=== PATIENT | female | born 1935 | race Caucasian/White ===

== ENCOUNTER 2016-04-07 12:22 | Observation (INO) | payer MEDICARE ==
[2016-04-07] MEDS ORDERED: SODIUM CHLORIDE 0.9% 3 ML FLUSH FLUSH PRN ×2 (13:07→17:01)
[2016-04-07] MEDS ORDERED: ONDANSETRON HCL 4 MG/2 ML VIAL IV ONE (13:07)
[2016-04-07] MEDS ORDERED: NS 1,000 ML IV ONE ×2 (13:07)
--- NOTE | 2016-04-07 13:20 | DIRPT ---
CLINICAL DATA: Nausea and vomiting. EXAM: PORTABLE CHEST 1 VIEW COMPARISON: August 05, 2015 FINDINGS: No pneumothorax. The cardiomediastinal silhouette and left-sided pacemaker are stable. No pulmonary nodules or masses. No acute abnormalities are seen. IMPRESSION: No active disease. Electronically Signed By: Semaj Lowery III, M.D On: 04/07/2016 13:18
--- NOTE | 2016-04-07 13:24 | EDPRACDOC ---
- General Information Information Source: Patient, Family () Mode Of Arrival: Car - History of Present Illness Onset: 4 days Exact Onset of Symptoms: Known Date Symptoms Started: 04/03/16 HPI: PT STATES STARTED WITH N/V/D 4 DAYS AGO HAD 2 DAYS OF N/V/D STOPPED ON WEDNESDAY AND HAS BEEN FEELING WEAK SINCE THEN. STATES SHE IS HAVING SHOB WITH ANY EXERTION AT ALL CAN BARELY STAND TO WALK BECAUSE SHE IS SO WEAK. NO N/V/D FOR 2 DAYS. Symptoms Started: Reports: Gradually (OVER THE LAST 4 DAYS) Symptoms Description: Constant Weakness: Bilateral: Generalized Symptoms: Reports: Weak Symptom Severity: Reports: Unable to performs ADL's Relevant History of: Reports: Anemia Associated signs and symptoms:: Reports: Nausea (2 DAYS AGO), Vomiting <Stacy Alvarado - Last Filed: 04/07/16 13:21> <Caryn Hays - Last Filed: 04/07/16 16:42> - General Information Chief Complaint: Generalized Weakness Stated Complaint: WEAK Time Seen by Provider: 04/07/16 13:06 Home Medications: Home Medications Ascorbate Calcium [Vitamin C] 500 mg PO DAILY 08/05/15 Azathioprine [Imuran] 50 mg PO [facility] 08/05/15 Benzonatate [Tessalon] 100 mg PO BID PRN 08/05/15 Calcium Carb & Cit/Vitamin D3 [Citracal + D ER Tablet] 1 tab PO QA 08/05/15 Cranberry Extract/Vit C [Azo Cranberry Softgel (250 mg/30 mg)] 1 cap PO BID Ferrous Sulfate [Iron] 325 mg PO MOWEFR 08/05/15 Latanoprost [Xalatan] 1 drop OU QHS 08/05/15 Sertraline HCl 25 mg PO QA 08/05/15 Vit A/Vit C/Vit E/Zinc/Copper [I-Caps Areds Softgel] 1 cap PO BID 08/05/15 Apixaban [Eliquis] 2.5 mg PO BID 04/07/16 Brinzolamide/Brimonidine Tart [Simbrinza 1%-0.2% Eye Drops] 1 drop OU BID Cholecalciferol (Vitamin D3) [D-2000] 2,000 unit PO QAM 04/07/16 Denosumab [Prolia] 60 mg SQ [id number] 04/07/16 Lactobacillus Combination No.4 [Probiotic] 1 each PO QAM 04/07/16 Levothyroxine Sodium [Synthroid] 175 mcg PO DAILY 04/07/16 Allergies/Adverse Reactions: Allergies Allergy/AdvReac Type Severity Reaction Status Date / Time Cephalosporins Allergy Unknown Verified 04/07/16 13:28 ciprofloxacin [From Cipro] Allergy See Verified 04/07/16 12:42 Comments ciprofloxacin HCl Allergy See Verified 04/07/16 12:42 [From Cipro] Comments erythromycin base Allergy Nausea only Verified 04/07/16 12:42 methotrexate Allergy See Verified 04/07/16 12:42 Comments nitrofurantoin Allergy Unknown Verified 04/07/16 13:28 [From Macrobid] sulfamethoxazole Allergy Rash-Genera Verified 04/07/16 12:42 [From Septra] lized trimethoprim [From Septra] Allergy Rash-Genera Verified 04/07/16 12:42 lized zolpidem tartrate Allergy See Verified 04/07/16 12:42 [From Ambien] Comments ED Past Medical History - History Reviewed Yes Nurses notes reviewed and agree except as marked Travel Outside of [place] in the Last 3 Months?: No - Patient Medical History Cardiac History: Reports: Atrial Fibrillation, Hypertension, Pacemaker Respiratory History: Reports: No Significant History GI/ History: Reports: No Significant History Surgical History: Reports: Cholecystectomy, Other (HIP, KNEE) - Social Medical History Smoking Status: Never smoker ETOH: None Substance Abuse: None Lives With: Spouse Lives In: Home <Stacy Alvarado - Last Filed: 04/07/16 13:21> EDM Review of Systems - Review of Systems ROS Negative Except as Marked: Yes All systems reviewed and were negative except as marked Constitutional: Fatigue, Weakness. negative: Chills, Fever, Loss of Appetite Eyes: No Symptoms Reported. negative: Redness, Blurred Vision, Double Vision, Discharge, Pain, Light Sensitive, Photophobia Ears: No Symptoms Reported. negative: Pain, Hearing Loss, Drainage, Ear Pulling Throat: No Symptoms Reported. negative: Pain, Swelling Nose: No Symptoms Reported. negative: Congestion, Bleeding, Discharge, Injection, Swelling, Deformity, Ecchymosis, Tender, Abrasion, Laceration Mouth: No Symptoms Reported. negative: Pain, Drooling Respiratory: Shortness of Breath. negative: Barky Cough, Brassy Cough, Cough, Hemoptysis, Wheezing Cardiovascular: No Symptoms Reported. negative: Chest Pain, Palpitations, Syncope, Edema, Orthopnea, PND, Skin Mottling, Cyanosis Gastrointestinal: Diarrhea (RESOLVED), Nausea (RESOLVED), Vomiting (RESOLVED). negative: Constipation, Formula Intolerance, Melena, Pain Genitourinary: No Symptoms Reported. negative: Dysuria, Hematuria, Frequency, Discharge, Bleeding, Testicular Pain, Neurological: No Symptoms Reported. negative: Headache, Dizziness, Seizure, Numbness, Weakness, Speech Difficulty, Gait Difficulty Musculoskeletal: No Symptoms Reported. negative: Neck, Chestwall, Ribs, Back, Shoulder, Arm, Elbow, Forearm, Wrist, Hand, Pelvis, Hip, Femur, Knee, Leg, Ankle , Foot Integumentary: No Symptoms Reported. negative: Itching, Rash, Bruising, Wound Allergic/Immunologic: No Symptoms Reported. negative: Hives, Itching Hematologic: No Symptoms Reported. negative: Lymphadenopathy, Easy Bruising, Easy Bleeding Endocrine: No Symptoms Reported. negative: Weight Gain, Weight Loss Psychiatric: No Symptoms Reported. negative: Anxiety, Depression, Hallucinations, Insomnia, Suicidal <Stacy Alvarado - Last Filed: 04/07/16 13:21> - Physical Exam Constitutional: No apparent distress, Alert (Awake) Oriented to: Time, Person, Place Last recorded Vital Signs: Last Vital Signs Temp 98.6 F 04/07/16 12:43 Pulse 81 04/07/16 13:09 Resp 20 04/07/16 13:09 BP 123/55 L 04/07/16 13:09 Pulse Ox 91 04/07/16 13:09 Oxygen Pulse Oxygen Saturation 91 O2 Device Room Air Oxygen Flow Rate Fraction of Inspired Oxygen ( FIO2) - HEENT Head: Normal ( normocephalic) Eye Exam: Pale Conjunctiva Oropharynx: Normal (Pharynx:Moist without exudate,Gums-no swelling) Tympanic Membrane: Normal ENT EAC: Normal TMJ: Normal Nose: No Symptoms Reported (septum midline) Neck: Normal (FROM, trachea at midline) - Respiratory/Cardiovascular Respiratory: Diminished Cardiovascular: Normal (RRR without murmur, gallop or rub) - GI Auscultation: Normal (NABS) Palpation: Normal (Soft,No rebound or guarding, non distended) Tenderness: Non tender Calixto's Sign: Negative - Bladder: Normal - Musculoskeletal Back: Normal (Non-Tender) Extremities: Normal (Normal tone, Pulses 2+ No cyanosis or edema, FROM) - Integumentary Skin: Normal, Warm, Dry Lymphatics: Normal (no adenopathy) - Neurologic Memory Impaired: Normal Motor Function: Normal (Normal tone, Pulses 2+ No cyanosis or edema, FROM) Cranial Nerve: Normal (CN II-X11 intact sensation, strength 5/5) Cerebellar: Normal Mood Description: Normal Perception: Normal <Stacy Alvarado - Last Filed: 04/07/16 13:21> - Physical Exam Last recorded Vital Signs: Last Vital Signs Temp 98.6 F 04/07/16 12:43 Pulse 75 04/07/16 16:26 Resp 20 04/07/16 16:26 BP 121/58 L 04/07/16 16:26 Pulse Ox 94 04/07/16 16:26 Oxygen Pulse Oxygen Saturation 94 O2 Device Nasal Cannula Oxygen Flow Rate 2 Fraction of Inspired Oxygen ( FIO2) <Caryn Hays - Last Filed: 04/07/16 16:42> - Differential Diagnosis Anemia, Dehydration, Electrolyte disorder, Hypoglycemia, Other (UTI) - EKG EKG #1 EKG Time: 13:13 -: Yes EKG interpreted by me Rate: bpm: 88 [place]: Normal Rhythm: Afib (RATE CONTROLLED), PVCs Block: None Hypertrophy: None ST: Normal <Stacy Alvarado - Last Filed: 04/07/16 13:21> - Results 04/07/16 13:21 04/07/16 13:21 WBC 7.6 xk/uL (3.8-10.8) 04/07/16 13:21 RBC 4.12 xM/uL (4.20-5.40) L 04/07/16 13:21 Hgb 14.4 g/dL (12.0-16.0) 04/07/16 13:21 Hct 43.0 % (36-47) 04/07/16 13:21 MCV 104 fL (81-99) H 04/07/16 13:21 MCH 34.9 pg (27-32) H 04/07/16 13:21 MCHC 33.5 g/dl (33-36) 04/07/16 13:21 RDW 14.1 % (11.5-14.5) 04/07/16 13:21 Plt Count 291 xk/uL (130-400) 04/07/16 13:21 MPV 6.9 fL (7.4-10.4) L 04/07/16 13:21 Neut % (Auto) 72.3 % (45-76) 04/07/16 13:21 Lymph % (Auto) 11.5 % (17-44) L 04/07/16 13:21 [place] % (Auto) 13.7 % (3-10) H 04/07/16 13:21 Eos % (Auto) 1.4 % (0-5) 04/07/16 13:21 Baso % (Auto) 1.1 % (0-2) 04/07/16 13:21 Absolute Neuts (auto) 5.47 xk/uL (1.7-8.2) 04/07/16 13:21 Absolute Lymphs (auto) 0.84 xk/uL (0.65-4.75) 04/07/16 13:21 PT 11.8 SEC (9.2-11.2) H 04/07/16 13:21 INR 1.1 04/07/16 13:21 APTT 24.1 SEC (22-35) 04/07/16 13:21 Puncture Site Right radial 04/07/16 13:38 pCO2 35.0 mmHg (35-45) 04/07/16 13:38 pO2 60.0 mmHg (80-100) L 04/07/16 13:38 HCO3 23.2 MMOL/L (22-26) 04/07/16 13:38 Total CO2 24.3 MMOL/L (23-27) 04/07/16 13:38 Base Excess -0.6 (+/- 2) 04/07/16 13:38 Collected by Kasgl 04/07/16 13:38 ABG pH 7.430 pH UNITS (7.35-7.45) 04/07/16 13:38 ABG Hemoglobin 13.5 G/DL (12.0-16.0) 04/07/16 13:38 ABG Oxyhemoglobin 89.6 % (95-98) L* 04/07/16 13:38 ABG Carboxyhemoglobin 2.2 04/07/16 13:38 ABG Methemoglobin 1.1 % (<3.0) 04/07/16 13:38 Total O2 Concentration 17.0 VOL % (15.7-21.6) 04/07/16 13:38 Sodium 139 mEq/L (137-146) 04/07/16 13:21 Potassium 4.6 mEq/L (3.5-5.1) 04/07/16 13:21 Chloride 103 mEq/L (98-107) 04/07/16 13:21 Carbon Dioxide 24 mMOL/L (22-33) 04/07/16 13:21 Anion Gap 17 mEq/L (8-16) H 04/07/16 13:21 BUN 27 MG/DL (7-17) H 04/07/16 13:21 Creatinine 1.50 MG/DL (0.52-1.04) H 04/07/16 13:21 Estimated GFR (MDRD) 33 mL/min (>=60) L 04/07/16 13:21 Glucose 96 MG/DL (70-99) 04/07/16 13:21 Calculated Osmolality 273 MOs/Kg (270-290) 04/07/16 13:21 Calcium 9.5 MG/DL (8.4-10.2) 04/07/16 13:21 Corrected Calcium 10.2 MG/DL (8.4-10.2) 04/07/16 13:21 Total Bilirubin 0.6 MG/DL (0.2-1.3) 04/07/16 13:21 AST 49 IU/L (14-36) H 04/07/16 13:21 ALT 40 IU/L (9-52) 04/07/16 13:21 Alkaline Phosphatase 248 IU/L (55-165) H 04/07/16 13:21 Troponin I < 0.01 ng/mL (<.04) 04/07/16 13:21 Aaq-A-Nqgbhulgbsm Pept 4730 pg/mL (0-1800) H 04/07/16 13:21 Total Protein 7.4 G/DL (6.3-8.2) 04/07/16 13:21 Albumin 3.3 G/DL (3.5-5.0) L 04/07/16 13:21 Lipase 45 U/L (23-300) 04/07/16 13:21 Urine Color Yellow 04/07/16 14:57 Urine Clarity Sl cldy 04/07/16 14:57 Urine pH 5.0 (5.0-8.0) 04/07/16 14:57 Ur Specific [place] 1.010 04/07/16 14:57 Urine Protein 1+ (NEG/TRACE) H 04/07/16 14:57 Urine Glucose (UA) Neg (NEGATIVE) 04/07/16 14:57 Urine Ketones Neg (NEGATIVE) 04/07/16 14:57 Urine Occult Blood 2+ (NEG/TRACE) H 04/07/16 14:57 Urine Nitrite Pos (NEGATIVE) H 04/07/16 14:57 Urine Bilirubin Neg (NEGATIVE) 04/07/16 14:57 Urine Urobilinogen 0.2 MG/DL (0-1) 04/07/16 14:57 Ur Leukocyte Esterase 2+ (NEGATIVE) H 04/07/16 14:57 Urine RBC 2-5 (0-5) 04/07/16 14:57 Urine WBC 10-20 (0-5) H 04/07/16 14:57 Urine WBC Clumps Present (NONE) H 04/07/16 14:57 Ur Epithelial Cells 1+ 04/07/16 14:57 Amorphous Sediment Occ 04/07/16 14:57 Urine Bacteria 4+ (NEG/FEW) H 04/07/16 14:57 Blood Type O POSITIVE 04/07/16 13:26 Antibody Screen Negative 04/07/16 13:26 Lab Results 04/07/16 04/07/16 04/07/16 14:57 13:38 13:26 WBC RBC Hgb Hct MCV MCH MCHC RDW Plt Count MPV Neut % (Auto) Lymph % (Auto) [place] % (Auto) Eos % (Auto) Baso % (Auto) Absolute Neuts (auto) Absolute Lymphs (auto) PT INR APTT Puncture Site Right radial pCO2 35.0 pO2 60.0 L HCO3 23.2 Total CO2 24.3 Base Excess -0.6 Collected by Kasgl ABG pH 7.430 ABG Hemoglobin 13.5 ABG Oxyhemoglobin 89.6 L* ABG Carboxyhemoglobin 2.2 ABG Methemoglobin 1.1 Total O2 Concentration 17.0 Sodium Potassium Chloride Carbon Dioxide Anion Gap BUN Creatinine Estimated GFR (MDRD) Glucose Calculated Osmolality Calcium Corrected Calcium Total Bilirubin AST ALT Alkaline Phosphatase Troponin I Ouv-L-Ohabvvdnmhu Pept Total Protein Albumin Lipase Urine Color Yellow Urine Clarity Sl cldy Urine pH 5.0 Ur Specific [place] 1.010 Urine Protein 1+ H Urine Glucose (UA) Neg Urine Ketones Neg Urine Occult Blood 2+ H Urine Nitrite Pos H Urine Bilirubin Neg Urine Urobilinogen 0.2 Ur Leukocyte Esterase 2+ H Urine RBC 2-5 Urine WBC 10-20 H Urine WBC Clumps Present H Ur Epithelial Cells 1+ Amorphous Sediment Occ Urine Bacteria 4+ H Blood Type O POSITIVE Antibody Screen Negative 04/07/16 04/07/16 04/07/16 13:21 13:21 13:21 WBC 7.6 RBC 4.12 L Hgb 14.4 Hct 43.0 MCV 104 H MCH 34.9 H MCHC 33.5 RDW 14.1 Plt Count 291 MPV 6.9 L Neut % (Auto) 72.3 Lymph % (Auto) 11.5 L [place] % (Auto) 13.7 H Eos % (Auto) 1.4 Baso % (Auto) 1.1 Absolute Neuts (auto) 5.47 Absolute Lymphs (auto) 0.84 PT 11.8 H INR 1.1 APTT 24.1 Puncture Site pCO2 pO2 HCO3 Total CO2 Base Excess Collected by ABG pH ABG Hemoglobin ABG Oxyhemoglobin ABG Carboxyhemoglobin ABG Methemoglobin Total O2 Concentration Sodium 139 Potassium 4.6 Chloride 103 Carbon Dioxide 24 Anion Gap 17 H BUN 27 H Creatinine 1.50 H Estimated GFR (MDRD) 33 L Glucose 96 Calculated Osmolality 273 Calcium 9.5 Corrected Calcium 10.2 Total Bilirubin 0.6 AST 49 H ALT 40 Alkaline Phosphatase 248 H Troponin I < 0.01 Tju-U-Usgxbpawxub Pept 4730 H Total Protein 7.4 Albumin 3.3 L Lipase 45 Urine Color Urine Clarity Urine pH Ur Specific [place] Urine Protein Urine Glucose (UA) Urine Ketones Urine Occult Blood Urine Nitrite Urine Bilirubin Urine Urobilinogen Ur Leukocyte Esterase Urine RBC Urine WBC Urine WBC Clumps Ur Epithelial Cells Amorphous Sediment Urine Bacteria Blood Type Antibody Screen - Diagnostic Imaging Chest Image interpreted by: Radiologist Patient Name: KELVIN ROLDAN LOC: ED : 1935 AGE: 80 Order Date:04/07/16 Date of Service: Report # [id number] Ord Physician: Stacy Alvarado Exam # [id number] Emergency Physician: Provider,ER Exam(s): [id number] RAD/DG CHEST PORTABLE CLINICAL DATA: Nausea and vomiting. EXAM: PORTABLE CHEST 1 VIEW COMPARISON: August 05, 2015 FINDINGS: No pneumothorax. The cardiomediastinal silhouette and left-sided pacemaker are stable. No pulmonary nodules or masses. No acute abnormalities are seen. IMPRESSION: No active disease. Electronically Signed By: Semaj Lowery III, M.D On: 04/07/2016 13:18 Electronically Signed By: Semaj Lowery MD Electronically Signed Date/Time: 320 Dictate Date/Time: 04/07/167 Technologist: Paul Bronson Transcribed By: Anjum Transcribed Date/Time: 04/07/16 1318 <Caryn Hays - Last Filed: 04/07/16 16:42> <Stacy Alvarado - Last Filed: 04/07/16 13:21> Decision to Admit Time: 16:42 Decision to admit date: 04/07/16 Decision to admit: from ED - Physician Consulted Hospitalist Time Called: 16:42 Provider Called: Maya Mason Time Claim Trainee Returned Call: 16:42 <Caryn Hays - Last Filed: 04/07/16 16:42> - Departure Final Diagnosis: Urinary tract infection Qualifiers: Urinary tract infection type: acute cystitis Hematuria presence: with hematuria Qualified Code(s): N30.01 - Acute cystitis with hematuria Hypotension Qualifiers: Hypotension type: other hypotension type Qualified Code(s): I95.89 - Other hypotension Instructions: Weakness (General), Urinary Tract Infection in Women (ED), Dysuria
[2016-04-07 13:39] LABS: AUTOMATED BASOPHIL 1.1 % (0-2); AUTOMATED EOSINOPHIL 1.4 % (0-5); AUTOMATED LYMPH 11.5 % (17-44); AUTOMATED MONOCYTE 13.7 % (3-10); AUTOMATED NEUTROPHIL 72.3 % (45-76); MPV 6.9 fL (7.4-10.4)
[2016-04-07 13:42] LABS: % OXYHEMOGLOBIN 89.6 % (95-98); ALLEN'S TEST PASS; BEb -0.6 (+/- 2); CARBOXY HGB 2.2; TCO2 24.3 MMOL/L (23-27)
[2016-04-07 13:44] LABS: ABG Draw Site Right Radial
[2016-04-07 13:46] LABS: HEMOGLOBIN 13.5 G/DL (12.0-16.0)
[2016-04-07 13:49] LABS: BLOOD UREA NITROGEN 27 MG/DL (7-17); CALC CORRECTED 10.2 MG/DL (8.4-10.2); CALCIUM 9.5 MG/DL (8.4-10.2); CALCULATED OSMOLALITY 273 MOs/Kg (270-290); CHLORIDE 103 mEq/L (98-107); GLUCOSE 96 MG/DL (70-99); SODIUM LEVEL 139 mEq/L (137-146); TOTAL PROTEIN 7.4 G/DL (6.3-8.2)
[2016-04-07 13:54] LABS: PARTIAL THROMB. TIME 24.1 SEC (22-35); PT-INR 1.1
[2016-04-07 15:27] LABS: LEUKOCYTES/URINE 2+ (NEGATIVE); NITRITE/URINE POS (NEGATIVE); URINE OCCULT BLOOD 2+ (NEG/TRACE)
[2016-04-07 15:35] LABS: AMORPHOUS OCC
[2016-04-07] MEDS ORDERED: DENOSUMAB 60 MG SQ SCH (17:00)
[2016-04-07] MEDS ORDERED: PROMETHAZINE 25 MG/ML VIAL IV PRN (17:01)
[2016-04-07] MEDS ORDERED: ACETAMINOPHEN 325 MG/TAB TABLET PO PRN (17:01)
[2016-04-07] MEDS ORDERED: Aluminum;Magnesium;Simethicone 30 ML UDC PO PRN (17:01)
[2016-04-07] MEDS ORDERED: ONDANSETRON HCL 4 MG/2 ML VIAL IV PRN (17:01)
--- NOTE | 2016-04-07 17:01 | HISTPHYS ---
- Chief Complaint Patient presents with a complaint of weakness times several days. - History of Present Illness T STATES STARTED WITH N/V/D 4 DAYS AGO HAD 2 DAYS OF N/V/D STOPPED ON WEDNESDAY AND HAS BEEN FEELING WEAK SINCE THEN. STATES SHE IS HAVING SHOB WITH ANY EXERTION AT ALL CAN BARELY STAND TO WALK BECAUSE SHE IS SO WEAK. NO N/V/D FOR 2 DAYS. Symptoms Started: Reports: Gradually (OVER THE LAST 4 DAYS) Symptoms Description: Constant Weakness: Bilateral: Generalized Symptoms: Reports: Weak Symptom Severity: Reports: Unable to performs ADL's Relevant History of: Reports: Anemia Associated signs and symptoms:: Reports: Nausea (2 DAYS AGO), Vomiting 80-year-old female with a history of Bethany's granulomatosis who had a viral gastroenteritis about 4 days ago with associated nausea vomiting and diarrhea. Those symptoms stopped on Wednesday but she continued to feel weak since then having very significant shortness of breath with exertion and unable to stand because she feels weak. She has had no nausea vomiting over the past 2 days. Blood pressures were consistent with orthostatic hypotension and the patient was placed in outpatient observation for the treatment of same. She was found to have an abnormal urinalysis and revealed receive Zosyn. 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) GI/ History: Reports: No Significant History Musculoskeletal History: Reports: No Significant History Systemic History: Reports: No Significant History Neurological History: Reports: No Significant History Psychological History: Reports: No Significant History - Surgical History Reports: No Significant History, Cholecystectomy, Other (HIP, KNEE) - Medictions/Allergies Allergies Cephalosporins Allergy (Verified 04/07/16 13:28) Unknown ciprofloxacin [From Cipro] Allergy (Verified 04/07/16 12:42) See Comments BLEEDING FROM GUMS ciprofloxacin HCl [From Cipro] Allergy (Verified 04/07/16 12:42) See Comments erythromycin base Allergy (Verified 04/07/16 12:42) Nausea only methotrexate Allergy (Verified 04/07/16 12:42) See Comments HAD TO IN HOSPITAL nitrofurantoin [From Macrobid] Allergy (Verified 04/07/16 13:28) Unknown sulfamethoxazole [From Septra] Allergy (Verified 04/07/16 12:42) Rash-Generalized trimethoprim [From Septra] Allergy (Verified 04/07/16 12:42) Rash-Generalized zolpidem tartrate [From Ambien] Allergy (Verified 04/07/16 12:42) See Comments [facility]INS Home Medications Ascorbate Calcium [Vitamin C] 500 mg PO DAILY 08/05/15 Azathioprine [Imuran] 50 mg PO QAM 08/05/15 Benzonatate [Tessalon] 100 mg PO BID PRN 08/05/15 Calcium Carb & Cit/Vitamin D3 [Citracal + D ER Tablet] 1 tab PO QAM 08/05/15 Cranberry Extract/Vit C [Azo Cranberry Softgel (250 mg/30 mg)] 1 cap PO BID Ferrous Sulfate [Iron] 325 mg PO MOWEFR 08/05/15 Latanoprost [Xalatan] 1 drop OU QHS 08/05/15 Sertraline HCl 25 mg PO QAM 08/05/15 Vit A/Vit C/Vit E/Zinc/Copper [I-Caps Areds Softgel] 1 cap PO BID 08/05/15 Apixaban [Eliquis] 2.5 mg PO BID 04/07/16 Brinzolamide/Brimonidine Tart [Simbrinza 1%-0.2% Eye Drops] 1 drop OU BID Cholecalciferol (Vitamin D3) [D-2000] 2,000 unit PO QAM 04/07/16 Denosumab [Prolia] 60 mg SQ [id number] 04/07/16 Lactobacillus Combination No.4 [Probiotic] 1 each PO QAM 04/07/16 Levothyroxine Sodium [Synthroid] 175 mcg PO DAILY 04/07/16 - Family History Reports: No Significant History - Social History Travel Outside of [place] in the Last 3 Months?: No Lives: With Family Smoking Status: Never smoker Social History: Denies: Alcohol Use, Substance Use Disorder - Review of Systems Constitutional: Fatigue, Weakness. negative: Chills, Fever Eyes: No Symptoms Reported (No blurry vision, visual changes, eye pain, or eye redness.) Ears: No Symptoms Reported (No ear pain or discharge) Nose: No Symptoms Reported (No nasal discharge/congestion or bleeding) Mouth: No Symptoms Reported (No oropharyngeal lesions or erythema) Throat/Neck: No Symptoms Reported (No throat pain or swelling.No oropharyngeal lesions or erythema.) Respiratory: No Symptoms Reported (No cough, wheezing, or shortness of breath.) Cardiovascular: negative: Orthopnea, Palpitations, Syncope Gastrointestinal: negative: Nausea, Vomiting, Abdominal Pain, Diarrhea Genitourinary: No Symptoms Reported (No dysuria or hematuria.) Neurological: No Symptoms Reported (No headache, dizziness, seizures, or focal weakness.) Musculoskeletal:: No Symptoms Reported Integumentary: No Symptoms Reported (no rashes or lesions) Allergic/Immunologic: No Symptoms Reported (no rashes or lesions) Hematologic: No Symptoms Reported (No chronic anemia, bleeding, or easy bruising.), Other (Lymphatics- no lymph node swelling or pain.) Endocrine: No Symptoms Reported (No thyroid issues, polyuria, or polydipsia.) Psychiatric: No Symptoms Reported (Fully oriented, with normal and appropriate affect.) - Physical Exam Vital Signs: Initial Vitals Temperature 98.6 F 04/07/16 12:43 Pulse Rate 91 04/07/16 12:43 Respiratory Rate 18 04/07/16 12:43 Blood Pressure 97/56 L 04/07/16 12:43 Pulse Oxygen Saturation 91 04/07/16 12:43 Constitutional: Well nourished. negative: Well appearing Oriented to: Time, Person, Place - HEENT Head: Normal (normocephalic, atraumatic.), Other (No cervical lymphadenopathy. No supraclavicular lymphadenopathy. Neck: No palpable mass, supple , trachea midline.) Eye: Normal (pupils equal, reactive to light, and round; EOMI, Sclera white) Oropharynx: Normal (Pharynx: Moist without exudate,Gums-no swelling, No oropharyngeal lesions or erythema, Mucous membranes are dry.) Nose: No Symptoms Reported (septum midline, Nares patent, without discharge or bleeding.) Respiratory: Normal - CTA (Clear to auscultation bilaterally. No wheezing, rales , rhonchi. Chest wall movements are symmetric. No use of accessory muscles to breathe.) Cardiovascular: Normal (RRR , Normal S1, S2. No murmurs, rubs, or gallops. PMI non-displaced. Carotids: no carotid bruits. No bradycardia or tachycardia. DP pulses 2+ bilaterally.) - GI Auscultation: Normal (normal active sounds) Palpation: Normal (Soft,non distended,nontender. No hepatosplenomegaly.) Tenderness: Non tender (No rebound or guarding) Calixto's Sign: Negative - Musculoskeletal Back: Normal (Non-Tender) Extremities: Normal (Normal tone, DP pulses 2+ bilaterally, No cyanosis or edema bilaterally, FROM bilaterally.) - Integumentary Skin: Normal (Clean, dry, and intact. No rashes. No lesions.) Lymphatics: Normal (No cervical lymphadenopathy. No supraclavicular lymphadenopathy.) - Neurologic Memory Impaired: Normal Motor Function: Normal (Motor 5/5 throughout.Normal tone, Pulses 2+ No cyanosis or edema, FROM) Cranial Nerve: Normal (CN II-XII intact sensation, strength 5/5) Cerebellar: Normal (Babinski: toes downgoing bilaterally. Intact Finger to nose. Sensory grossly intact to light touch. Intact rapid alternating movements bilaterally. No pronator drift.) Mood Description: Normal (Fully oriented. Normal and appropriate affect.) Perception: Normal (Normal and appropriate affect.) - Focused CV Perfusion Exam Vital Signs: Last Vital Signs Temp 98.6 F 04/07/16 12:43 Pulse 75 04/07/16 16:26 Resp 20 04/07/16 16:26 BP 121/58 L 04/07/16 16:26 Pulse Ox 94 04/07/16 16:26 - Lab Results Laboratory Tests 04/07/16 04/07/16 04/07/16 13:21 13:21 13:21 WBC 7.6 Hgb 14.4 Hct 43.0 Plt Count 291 PT 11.8 H INR 1.1 APTT 24.1 Puncture Site pCO2 pO2 HCO3 Total CO2 Base Excess Collected by ABG pH ABG Oxyhemoglobin ABG Carboxyhemoglobin ABG Methemoglobin Total O2 Concentration Sodium 139 Potassium 4.6 Chloride 103 Carbon Dioxide 24 Anion Gap 17 H BUN 27 H Creatinine 1.50 H Estimated GFR (MDRD) 33 L Glucose 96 Calculated Osmolality 273 Lactic Acid Calcium 9.5 Corrected Calcium 10.2 Total Bilirubin 0.6 AST 49 H ALT 40 Alkaline Phosphatase 248 H Troponin I < 0.01 [id number]-S-Kjxgggkdyhx Pept 4730 H Total Protein 7.4 Albumin 3.3 L Lipase 45 Urine Color Urine Clarity Urine pH Ur Specific [place] Urine Protein Urine Glucose (UA) Urine Ketones Urine Occult Blood Urine Nitrite Urine Bilirubin Urine Urobilinogen Ur Leukocyte Esterase Urine RBC Urine WBC Urine WBC Clumps Ur Epithelial Cells Amorphous Sediment Urine Bacteria 04/07/16 04/07/16 04/07/16 13:21 13:38 14:57 WBC Hgb Hct Plt Count PT INR APTT Puncture Site Right radial pCO2 35.0 pO2 60.0 L HCO3 23.2 Total CO2 24.3 Base Excess -0.6 Collected by Kasgl ABG pH 7.430 ABG Oxyhemoglobin 89.6 L* ABG Carboxyhemoglobin 2.2 ABG Methemoglobin 1.1 Total O2 Concentration 17.0 Sodium Potassium Chloride Carbon Dioxide Anion Gap BUN Creatinine Estimated GFR (MDRD) Glucose Calculated Osmolality Lactic Acid 1.9 Calcium Corrected Calcium Total Bilirubin AST ALT Alkaline Phosphatase Troponin I Buk-A-Pmluyddokpv Pept Total Protein Albumin Lipase Urine Color Yellow Urine Clarity Sl cldy Urine pH 5.0 Ur Specific [place] 1.010 Urine Protein 1+ H Urine Glucose (UA) Neg Urine Ketones Neg Urine Occult Blood 2+ H Urine Nitrite Pos H Urine Bilirubin Neg Urine Urobilinogen 0.2 Ur Leukocyte Esterase 2+ H Urine RBC 2-5 Urine WBC 10-20 H Urine WBC Clumps Present H Ur Epithelial Cells 1+ Amorphous Sediment Occ Urine Bacteria 4+ H - Diagnostic Findings PORTABLE CHEST 1 VIEW COMPARISON: August 05, 2015 FINDINGS: No pneumothorax. The cardiomediastinal silhouette and left-sided pacemaker are stable. No pulmonary nodules or masses. No acute abnormalities are seen. IMPRESSION: No active disease. Electronically Signed By: Semaj Lowery III, M.D On: 04/07/2016 13:18 - Assessment (1) Hypotension I95.9 - HYPOTENSION, UNSPECIFIED Acute Qualifiers: Hypotension type: orthostatic hypotension Trimester: T Qualified Code(s) : I95.1 - Orthostatic hypotension Patient with some mild orthostatic hypotension she will be admitted into the hospital given IV fluid resuscitation. Will recheck orthostatics in a.m.. (2) Dehydration E86.0 - DEHYDRATION Acute Present on Admission: Yes Likely related to the severity of her nausea vomiting and diarrhea. Patient requires IV fluid resuscitative measures. (3) Urinary tract infection N39.0 - URINARY TRACT INFECTION, SITE NOT SPECIFIED Suspected Qualifiers: Urinary tract infection type: acute cystitis Hematuria presence: with hematuria Indwelling urinary catheter type: I Encounter type: E Qualified Code(s): N30.01 - Acute cystitis with hematuria Patient received Zosyn in the ER and ceftriaxone in the hospital. Send cultures. (4) Weakness generalized R53.1 - WEAKNESS Acute Present on Admission: Yes Due to dehydration and electrolyte a sent abnormalities associated with it. - Plan Observe the patient in the hospital overnight provide her IV fluid resuscitation and follow orthostatics. Her Case Care Discussed with: Patient, Consultants, Family, Nursing Staff Total Time: 65 minutes Critical Care: No Couseling Time (>50% in counseling/coordination): No
[2016-04-07] MEDS: PIPERACILLIN AND TAZOBACTAM 3.375 GM in D5W 100 ML IV ONE ×2 (17:40→17:42)
[2016-04-07] MEDS ORDERED: LATANOPROST 0.005% OPHTH SOLN 2.5 ML OU SCH ×2 (18:00→21:00)
[2016-04-07] MEDS ORDERED: BRINZOLAMIDE 1% OU SCH (18:00)
[2016-04-07] MEDS ORDERED: SODIUM CHLORIDE 0.9% 3 ML FLUSH FLUSH SCH (18:00)
[2016-04-07] MEDS ORDERED: BRIMONIDINE 0.2% OU SCH (18:00)
[2016-04-07 18:01] LABS: hTSH 2.45 uIU/mL (0.5-4.67)
[2016-04-07] MEDS: SODIUM CHLORIDE 0.9% 3 ML FLUSH FLUSH SCH (18:33)
[2016-04-07 18:43] VITALS: BMI 28.2
[2016-04-07] MEDS ORDERED: Vaccine Screening Complete SCH (19:00)
[2016-04-07] MEDS: APIXABAN 5 MG TABLET PO SCH (19:59)
[2016-04-07] MEDS: NS/KCl 20 mEq 1,000 ML IV SCH (19:59)
[2016-04-07] MEDS: BRINZOLAMIDE 1% OU SCH (20:00)
[2016-04-07] MEDS: BRIMONIDINE 0.2% OU SCH (20:00)
[2016-04-07] MEDS ORDERED: BRIMONIDINE TART OU SCH (21:00)
[2016-04-07] MEDS ORDERED: [UNRECOGNIZED DRUG - OTHER] OU SCH (21:00)
[2016-04-07] MEDS ORDERED: BRINZOLAMIDE OU SCH (21:00)
[2016-04-08] MEDS: NS/KCl 20 mEq 1,000 ML IV SCH (01:05)
[2016-04-08] MEDS: SODIUM CHLORIDE 0.9% 3 ML FLUSH FLUSH SCH (01:05)
[2016-04-08 07:13] LABS: AUTOMATED BASOPHIL 0.5 % (0-2); AUTOMATED EOSINOPHIL 3.4 % (0-5); AUTOMATED LYMPH 10.9 % (17-44); AUTOMATED MONOCYTE 13.9 % (3-10); AUTOMATED NEUTROPHIL 71.3 % (45-76); MPV 7.1 fL (7.4-10.4)
[2016-04-08 07:28] LABS: PARTIAL THROMB. TIME 22.4 SEC (22-35); PT-INR 1.1
[2016-04-08 07:36] LABS: BLOOD UREA NITROGEN 22 MG/DL (7-17); CALCIUM 7.7 MG/DL (8.4-10.2); CALCULATED OSMOLALITY 273 MOs/Kg (270-290); CHLORIDE 110 mEq/L (98-107); GLUCOSE 75 MG/DL (70-99); SODIUM LEVEL 141 mEq/L (137-146)
[2016-04-08] MEDS ORDERED: NS 1,000 ML IV SCH (07:40)
[2016-04-08] MEDS ORDERED: AMOXICILLIN/CLAVULANATE 875 MG TAB PO SCH (08:00)
[2016-04-08 08:13] VITALS: BP 142/74; TEMP 98.5
[2016-04-08] MEDS: BRIMONIDINE 0.2% OU SCH (08:21)
[2016-04-08] MEDS: APIXABAN 5 MG TABLET PO SCH (08:23)
[2016-04-08] MEDS: BRINZOLAMIDE 1% OU SCH (08:24)
[2016-04-08] MEDS ORDERED: LEVOTHYROXINE 125 MCG (0.125 MG) TAB PO SCH (09:00)
[2016-04-08] MEDS ORDERED: LEVOTHYROXINE 50 MCG (0.05 MG) TAB PO SCH (09:00)
[2016-04-08] MEDS ORDERED: SERTRALINE HCL 25 MG TAB PO SCH (09:00)
[2016-04-08] MEDS ORDERED: AZATHIOPRINE 50 MG TAB PO SCH (09:00)
[2016-04-08 10:23] VITALS: PULSE 86
--- NOTE | 2016-04-08 10:25 | PCM.DCS92 ---
- Final/Secondary Discharge Diagnosis (1) Hypotension Acute I95.9 - HYPOTENSION, UNSPECIFIED orthostatic hypotension T I95.1 - Orthostatic hypotension Comment: Patient with some mild orthostatic hypotension she will be admitted into the hospital given IV fluid resuscitation. Will recheck orthostatics in a.m.. (2) Dehydration Acute E86.0 - DEHYDRATION Present on Admission: Yes Comment: Likely related to the severity of her nausea vomiting and diarrhea. Patient requires IV fluid resuscitative measures. (3) Urinary tract infection Suspected N39.0 - URINARY TRACT INFECTION, SITE NOT SPECIFIED acute cystitis with hematuria I E N30.01 - Acute cystitis with hematuria Comment: Patient received Zosyn in the ER and will receive unasyn in the hospital. Send cultures. (4) Weakness generalized Acute R53.1 - WEAKNESS Present on Admission: Yes Comment: Due to dehydration and electrolyte a sent abnormalities associated with it. Discharge Disposition: Home Discharge Condition: Improved Cognitive Discharge Status: Unimpaired Fuctional Discharge Status: Independent Physician Follow up/Referrals: Isra Tejada II, MD [Primary Care Provider] - One Week Home Medications / New Prescriptions: New Amoxicillin/Clavulanate Potas. [Augmentin] 875 mg PO BIDWM #14 tablet Continue Sertraline HCl 25 mg PO QAM Azathioprine [Imuran] 50 mg PO QAM Ferrous Sulfate [Iron] 325 mg PO MOWEFR Benzonatate [Tessalon] 100 mg PO BID PRN PRN Reason: Cough Vit A/Vit C/Vit E/Zinc/Copper [Icaps Areds Softgel] 1 cap PO BID Ascorbate Calcium [Vitamin C] 500 mg PO DAILY Latanoprost [Xalatan] 1 drop OU QHS Cranberry Extract/Vit C [Azo Cranberry Softgel (250 mg/30 mg)] 1 cap PO BID Calcium Carb & Cit/Vitamin D3 [Citracal + D ER Tablet] 1 tab PO QAM Denosumab [Prolia] 60 mg SQ .[id number] Apixaban [Eliquis] 2.5 mg PO BID Lactobacillus Combination No.4 [Probiotic] 1 each PO QAM Cholecalciferol (Vitamin D3) [D3-2000] 2,000 unit PO QAM Levothyroxine Sodium [Synthroid] 175 mcg PO DAILY Brinzolamide/Brimonidine Tart [Simbrinza 1%-0.2% Eye Drops] 1 drop OU BID Discharge Home Medication List Ascorbate Calcium [Vitamin C] 500 mg PO DAILY 08/05/15 [History Confirmed ] Azathioprine [Imuran] 50 mg PO QAM 08/05/15 [History Confirmed 04/07/16] Benzonatate [Tessalon] 100 mg PO BID PRN 08/05/15 [History Confirmed 04/07/16] Calcium Carb & Cit/Vitamin D3 [Citracal + D ER Tablet] 1 tab PO QAM 08/05/15 [ History Confirmed 04/07/16] Cranberry Extract/Vit C [Azo Cranberry Softgel (250 mg/30 mg)] 1 cap PO BID [History Confirmed 04/07/16] Ferrous Sulfate [Iron] 325 mg PO MOWEFR 08/05/15 [History Confirmed 04/07/16] Latanoprost [Xalatan] 1 drop OU QHS 08/05/15 [History Confirmed 04/07/16] Sertraline HCl 25 mg PO QAM 08/05/15 [History Confirmed 04/07/16] Vit A/Vit C/Vit E/Zinc/Copper [Icaps Areds Softgel] 1 cap PO BID 08/05/15 [ History Confirmed 04/07/16] Apixaban [Eliquis] 2.5 mg PO BID 04/07/16 [History Confirmed 04/07/16] Brinzolamide/Brimonidine Tart [Simbrinza 1%-0.2% Eye Drops] 1 drop OU BID [History Confirmed 04/07/16] Cholecalciferol (Vitamin D3) [D3-2000] 2,000 unit PO QAM 04/07/16 [History Confirmed 04/07/16] Denosumab [Prolia] 60 mg SQ [id number] 04/07/16 [History Confirmed 04/07/16] Lactobacillus Combination No.4 [Probiotic] 1 each PO QAM 04/07/16 [History Confirmed 04/07/16] Levothyroxine Sodium [Synthroid] 175 mcg PO DAILY 04/07/16 [History Confirmed ] Amoxicillin/Clavulanate Potas. [Augmentin] 875 mg PO BIDWM #14 tablet 04/08/16 [ Rx] New Discharge Medications (Rx) Amoxicillin/Clavulanate Potas. [Augmentin] 875 mg PO BIDWM #14 tablet 04/08/16 [ Rx] O2 Device: Room Air Diet at Discharge: As Tolerated Activity: No Restrictions, As Tolerated Call Office For: Worsening Symptoms, Fever over 100.5, Pain Uncontrolled By Meds - DC Summary Notes Hospital Course Note:: Discharge summary on patient named KELVIN ROLDAN admitted to [facility] on 04/07/16 by Maya Mason MD. Date of discharge is []. Very pleasant 80-year-old female who has a history of Bethany's granulomatosis. She is on some immunosuppressants due to that. She had a viral gastroenteritis a few days ago and became very weak and dehydrated from that. She has not been able to recover and still feels fairly weak although she has been able to eat and drink. In the emergency department she was referred to me due to her degree of weakness and dehydration. She was admitted into the hospital given fluid resuscitation. She also was found to have an abnormal urinalysis consistent with a urinary tract infection and was started on Zosyn in the emergency department. She received Unasyn in the hospital. At home she will get Augmentin. At this point she has reached maximal benefit of hospitalization. She is stable for discharge home. Total Time: 45 min - Physical Exam Vital Signs: Last Vital Signs Temp 98.5 F 04/08/16 08:12 Pulse 86 04/08/16 10:22 Resp 20 04/08/16 08:12 BP 142/74 04/08/16 08:12 Pulse Ox 93 04/08/16 10:22 Oxygen Pulse Oxygen Saturation 93 O2 Device Nasal Cannula Oxygen Flow Rate 1 Fraction of Inspired Oxygen ( FIO2) Constitutional: No apparent distress, Well nourished, Well appearing Oriented to: Time, Person, Place - HEENT Head: Normal (normocephalic, atraumatic.), Other (No cervical lymphadenopathy. No supraclavicular lymphadenopathy. Neck: No palpable mass, supple , trachea midline.) Eye: Normal (pupils equal, reactive to light, and round; EOMI, Sclera white) Oropharynx: Normal (Pharynx: Moist without exudate,Gums-no swelling, No oropharyngeal lesions or erythema, Mucous membranes are dry.) Nose: No Symptoms Reported (septum midline, Nares patent, without discharge or bleeding.) - Respiratory/Cardiovascular Respiratory: Normal - CTA (Clear to auscultation bilaterally. No wheezing, rales , rhonchi. Chest wall movements are symmetric. No use of accessory muscles to breathe.) Cardiovascular: Normal (RRR , Normal S1, S2. No murmurs, rubs, or gallops. PMI non-displaced. Carotids: no carotid bruits. No bradycardia or tachycardia. DP pulses 2+ bilaterally.) - GI Auscultation: Normal (normal active sounds) Palpation: Normal (Soft,non distended,nontender. No hepatosplenomegaly.) Tenderness: Non tender (No rebound or guarding) Calixto's Sign: Negative - Musculoskeletal Back: Normal (Non-Tender) Extremities: Normal (Normal tone, DP pulses 2+ bilaterally, No cyanosis or edema bilaterally, FROM bilaterally.) - Integumentary Skin: Normal (Clean, dry, and intact. No rashes. No lesions.) Lymphatics: Normal (No cervical lymphadenopathy. No supraclavicular lymphadenopathy.) - Neurologic Memory Impaired: Normal Motor Function: Normal (Motor 5/5 throughout.Normal tone, Pulses 2+ No cyanosis or edema, FROM) Cranial Nerve: Normal (CN II-XII intact sensation, strength 5/5) Cerebellar: Normal (Babinski: toes downgoing bilaterally. Intact Finger to nose. Sensory grossly intact to light touch. Intact rapid alternating movements bilaterally. No pronator drift.) Mood Description: Normal (Fully oriented. Normal and appropriate affect.) Thought: Coherent Perception: Normal (Normal and appropriate affect.) - Other Exam Other Exam Findings: Laboratory Results - last 24 hr 04/07/16 04/07/16 04/07/16 13:21 13:21 13:21 WBC 7.6 RBC 4.12 L Hgb 14.4 Hct 43.0 MCV 104 H MCH 34.9 H MCHC 33.5 RDW 14.1 Plt Count 291 MPV 6.9 L Neut % (Auto) 72.3 Lymph % (Auto) 11.5 L [place] % (Auto) 13.7 H Eos % (Auto) 1.4 Baso % (Auto) 1.1 Absolute Neuts (auto) 5.47 Absolute Lymphs (auto) 0.84 PT 11.8 H INR 1.1 APTT 24.1 Puncture Site pCO2 pO2 HCO3 Total CO2 Base Excess Collected by ABG pH ABG Hemoglobin ABG Oxyhemoglobin ABG Carboxyhemoglobin ABG Methemoglobin Total O2 Concentration Sodium 139 Potassium 4.6 Chloride 103 Carbon Dioxide 24 Anion Gap 17 H BUN 27 H Creatinine 1.50 H Estimated GFR (MDRD) 33 L Glucose 96 Calculated Osmolality 273 Lactic Acid Calcium 9.5 Corrected Calcium 10.2 Magnesium Total Bilirubin 0.6 AST 49 H ALT 40 Alkaline Phosphatase 248 H Troponin I < 0.01 [id number] Pept 4730 H Total Protein 7.4 Albumin 3.3 L Lipase 45 TSH Urine Color Urine Clarity Urine pH Ur Specific [place] Urine Protein Urine Glucose (UA) Urine Ketones Urine Occult Blood Urine Nitrite Urine Bilirubin Urine Urobilinogen Ur Leukocyte Esterase Urine RBC Urine WBC Urine WBC Clumps Ur Epithelial Cells Amorphous Sediment Urine Bacteria Blood Type Antibody Screen 04/07/16 04/07/16 04/07/16 13:21 13:26 13:38 WBC RBC Hgb Hct MCV MCH MCHC RDW Plt Count MPV Neut % (Auto) Lymph % (Auto) [place] % (Auto) Eos % (Auto) Baso % (Auto) Absolute Neuts (auto) Absolute Lymphs (auto) PT INR APTT Puncture Site Right radial pCO2 35.0 pO2 60.0 L HCO3 23.2 Total CO2 24.3 Base Excess -0.6 Collected by Kasgl ABG pH 7.430 ABG Hemoglobin 13.5 ABG Oxyhemoglobin 89.6 L* ABG Carboxyhemoglobin 2.2 ABG Methemoglobin 1.1 Total O2 Concentration 17.0 Sodium Potassium Chloride Carbon Dioxide Anion Gap BUN Creatinine Estimated GFR (MDRD) Glucose Calculated Osmolality Lactic Acid 1.9 Calcium Corrected Calcium Magnesium Total Bilirubin AST ALT Alkaline Phosphatase Troponin I Xhc-X-Ftefmmyyfvy Pept Total Protein Albumin Lipase TSH Urine Color Urine Clarity Urine pH Ur Specific [place] Urine Protein Urine Glucose (UA) Urine Ketones Urine Occult Blood Urine Nitrite Urine Bilirubin Urine Urobilinogen Ur Leukocyte Esterase Urine RBC Urine WBC Urine WBC Clumps Ur Epithelial Cells Amorphous Sediment Urine Bacteria Blood Type O POSITIVE Antibody Screen Negative 04/07/16 04/07/16 04/07/16 14:57 15:55 15:55 WBC RBC Hgb Hct MCV MCH MCHC RDW Plt Count MPV Neut % (Auto) Lymph % (Auto) [place] % (Auto) Eos % (Auto) Baso % (Auto) Absolute Neuts (auto) Absolute Lymphs (auto) PT INR APTT Puncture Site pCO2 pO2 HCO3 Total CO2 Base Excess Collected by ABG pH ABG Hemoglobin ABG Oxyhemoglobin ABG Carboxyhemoglobin ABG Methemoglobin Total O2 Concentration Sodium Potassium Chloride Carbon Dioxide Anion Gap BUN Creatinine Estimated GFR (MDRD) Glucose Calculated Osmolality Lactic Acid Calcium Corrected Calcium Magnesium 2.10 Total Bilirubin AST ALT Alkaline Phosphatase Troponin I < 0.01 Gcb-M-Jijvqgystkd Pept Total Protein Albumin Lipase TSH 2.45 Urine Color Yellow Urine Clarity Sl cldy Urine pH 5.0 Ur Specific [place] 1.010 Urine Protein 1+ H Urine Glucose (UA) Neg Urine Ketones Neg Urine Occult Blood 2+ H Urine Nitrite Pos H Urine Bilirubin Neg Urine Urobilinogen 0.2 Ur Leukocyte Esterase 2+ H Urine RBC 2-5 Urine WBC 10-20 H Urine WBC Clumps Present H Ur Epithelial Cells 1+ Amorphous Sediment Occ Urine Bacteria 4+ H Blood Type Antibody Screen 04/07/16 04/08/16 04/08/16 19:35 06:26 06:26 WBC 5.5 RBC 3.45 L Hgb 12.1 D Hct 36.8 MCV 107 H MCH 35.0 H MCHC 32.8 L RDW 14.5 Plt Count 215 MPV 7.1 L Neut % (Auto) 71.3 Lymph % (Auto) 10.9 L [place] % (Auto) 13.9 H Eos % (Auto) 3.4 Baso % (Auto) 0.5 Absolute Neuts (auto) 3.91 Absolute Lymphs (auto) 0.55 L PT INR APTT Puncture Site pCO2 pO2 HCO3 Total CO2 Base Excess Collected by ABG pH ABG Hemoglobin ABG Oxyhemoglobin ABG Carboxyhemoglobin ABG Methemoglobin Total O2 Concentration Sodium 141 Potassium 5.6 H Chloride 110 H Carbon Dioxide 25 Anion Gap 12 BUN 22 H Creatinine 1.20 H Estimated GFR (MDRD) 43 L Glucose 75 Calculated Osmolality 273 Lactic Acid Calcium 7.7 L Corrected Calcium Magnesium Total Bilirubin AST ALT Alkaline Phosphatase Troponin I < 0.01 Stw-L-Cfltwehzkoe Pept Total Protein Albumin Lipase TSH Urine Color Urine Clarity Urine pH Ur Specific [place] Urine Protein Urine Glucose (UA) Urine Ketones Urine Occult Blood Urine Nitrite Urine Bilirubin Urine Urobilinogen Ur Leukocyte Esterase Urine RBC Urine WBC Urine WBC Clumps Ur Epithelial Cells Amorphous Sediment Urine Bacteria Blood Type Antibody Screen 04/08/16 06:26 WBC RBC Hgb Hct MCV MCH MCHC RDW Plt Count MPV Neut % (Auto) Lymph % (Auto) [place] % (Auto) Eos % (Auto) Baso % (Auto) Absolute Neuts (auto) Absolute Lymphs (auto) PT 11.6 H INR 1.1 APTT 22.4 Puncture Site pCO2 pO2 HCO3 Total CO2 Base Excess Collected by ABG pH ABG Hemoglobin ABG Oxyhemoglobin ABG Carboxyhemoglobin ABG Methemoglobin Total O2 Concentration Sodium Potassium Chloride Carbon Dioxide Anion Gap BUN Creatinine Estimated GFR (MDRD) Glucose Calculated Osmolality Lactic Acid Calcium Corrected Calcium Magnesium Total Bilirubin AST ALT Alkaline Phosphatase Troponin I Hcs-D-Dluzwqzlisq Pept Total Protein Albumin Lipase TSH Urine Color Urine Clarity Urine pH Ur Specific [place] Urine Protein Urine Glucose (UA) Urine Ketones Urine Occult Blood Urine Nitrite Urine Bilirubin Urine Urobilinogen Ur Leukocyte Esterase Urine RBC Urine WBC Urine WBC Clumps Ur Epithelial Cells Amorphous Sediment Urine Bacteria Blood Type Antibody Screen
[2016-04-08] MEDS ORDERED: PROBIOTIC BLEND TAB PO SCH (12:00)
--- NOTE | 2016-04-08 16:02 | DIRPT ---
CLINICAL DATA: Hypoxia EXAM: CHEST 2 VIEW PORTABLE COMPARISON: Chest radiograph from one day prior. FINDINGS: Left subclavian single lead pacemaker is stable in configuration with lead tip overlying the right ventricle. Stable cardiomediastinal silhouette with mild cardiomegaly. No pneumothorax. Trace bilateral pleural effusions, stable. Mild pulmonary edema, slightly increased. IMPRESSION: 1. Mild congestive heart failure, slightly increased. 2. Trace bilateral pleural effusions, stable. Electronically Signed By: Chris Phillips M.D. On: 04/08/2016 13:35
== END 2016-04-08 14:15 | disposition home or self-care (01) ==
LOC: ED 12:22 → MPS3 17:03
PROVIDERS: ADMIT Hospitalist; ATTEND Hospitalist
DX: I95.9 Hypotension, unspecified (principal); E86.0 Dehydration; N30.01 Acute cystitis with hematuria; R53.1 Weakness; M31.30 Wegener's granulomatosis without renal involvement; Z79.899 Other long term (current) drug therapy; I48.91 Unspecified atrial fibrillation; I10 Essential (primary) hypertension; Z95.0 Presence of cardiac pacemaker
CPT/HCPCS: 36415; 36600; 71010; 71020; 80048; 80053; 81001; 82805; 83605; 83690; 83735; 83880; 84443; 84484; 85025; 85610; 85730; 86850; 86900; 86901; 87040; 87077; 87086; 87186; 93005; 96361; 96365; 96375; 97161; 97165; 99285; A9270; G0237; G0378; G8978; G8979; G8987; G8988; G8989; J2405; J2543; J7040; J7060; J3490